=== PATIENT | female | born 1995 | race Caucasian/White ===

== ENCOUNTER → 2017-12-04 11:51 | Outpatient (CLI) | payer OTHER, SELFPAY ==
[2017-12-04 21:13] LABS: Urine N gonorrhoeae NOT DETECTED
[2017-12-04 21:22] LABS: Urine Chlamydia NOT DETECTED
== END ==
PROVIDERS: Family Provider Internal Medicine; PCP Internal Medicine; Visit Provider Internal Medicine
DX: Z11.3 Encounter for screening for infections with a predominantly sexual mode of transmission (principal); Z11.8 Encounter for screening for other infectious and parasitic diseases
CPT/HCPCS: 87491; 87591

== ENCOUNTER → 2020-05-06 10:23 | Outpatient (CLI) | payer OTHER, MEDICAID, SELFPAY ==
[2020-05-06] MEDS: COVID-19 VACC #1, MRNA(MOD) 100 MCG/0.5 ML VIAL IM (10:28)
== END ==
PROVIDERS: Family Provider Internal Medicine; PCP Internal Medicine; Visit Provider Internal Medicine
DX: Z23 Encounter for immunization (principal)
CPT/HCPCS: 0011A; 91301

== ENCOUNTER → 2020-06-03 10:17 | Outpatient (CLI) | payer OTHER, MEDICAID, SELFPAY ==
[2020-06-03] MEDS: COVID-19 VACC #2, MRNA(MOD) 100 MCG/0.5 ML VIAL IM (10:23)
== END ==
PROVIDERS: Family Provider Internal Medicine; PCP Internal Medicine; Visit Provider Internal Medicine
DX: Z23 Encounter for immunization (principal)
CPT/HCPCS: 0012A; 91301

== ENCOUNTER → 2020-11-28 17:40 | Outpatient (ROUT) | payer OTHER, MEDICAID, SELFPAY | PROVIDERS: Family Provider Internal Medicine; PCP Internal Medicine; Visit Provider Internal Medicine | DX: L29.8 Other pruritus (principal); N89.8 Other specified noninflammatory disorders of vagina | CPT/HCPCS: 87070; 87077; 87147; 87205 ==

== ENCOUNTER 2021-03-21 01:25 | Emergency (ER) | payer OTHER, SELFPAY ==
--- NOTE | 2021-03-21 01:35 | ED_ITS ---
HPI - Syncope General Chief Complaint: Syncope Stated Complaint: Syncope Time Seen by Provider: 03/21/21 01:34 History of Present Illness HPI narrative: 26F nonsmoker without significant or chronic medical history presents by EMS for evaluation of a syncopal episode just prior to arrival. She had been in her normal state of health and denies any recent medication change, dietary change. She has had no fever chills and denies any chest pain or shortness of breath. She states that she was having intercourse and adjust had an intense orgasm and developed some pain in her lower abdomen, she started feeling lightheaded and went to the bathroom and then had a syncopal episode. Her partner witness this and stated last about 1 minute and thought she might have been twitching a bit, perhaps likely seizure. She quickly came to and has largely been at her baseline since. She no longer has any abdominal pain. She denies any vaginal bleeding or discharge, last menstrual cycle was 3 weeks ago. She does state that she has had a few episodes of intense pain in the aftermath of an orgasm but never quite as significant as today. Related Data Previous Rx's Medication Instructions Recorded desogestrel 0.15 mg-ethinyl 1 tab PO QDAY #12 packet 12/18/17 estradiol 0.03 mg tablet (Apri) Allergies Allergy/AdvReac Type Severity Reaction Status Date / Time No Known Drug Allergies Allergy Unverified 12/04/17 08:47 Review of Systems Review of Systems Narrative: GENERAL: Denies chills, fatigue, malaise, fever, sweats. HEENT: Denies sinus pain, ear pain, sore throat, difficulty swallowing, dizziness. RESPIRATORY: Denies dyspnea, cough, wheezing, hemoptysis, sputum. CARDIOVASCULAR: See HP GASTROINTESTINAL: Denies nausea, vomiting, abdominal pain, diarrhea, constipation, melena. : Denies dysuria, frequency, incontinence, hematuria, urinary retention. MUSCULOSKELETAL: denies weakness, joint pain, or bony pain SKIN: Denies rash, skin lesions, or other NEUROLOGIC: Denies weakness, headache, numbness, change in speech, confusion, seizures, incoordination. PSYCHIATRIC: No concerning psychosocial issues. 12 point review of systems is negative except for those stated above Patient History Medical History Chicken pox (~1998) Plantar warts Family History Brother Age: 23 Down's syndrome Grandmother Malignant neoplasm of female breast, unspecified laterality, unspecified site of breast Grandmother Malignant neoplasm of female breast, unspecified laterality, unspecified site of breast Social History Smoking Status: Never smoker Smoking Status: Never smoker Exam Narrative Exam Narrative: GENERAL: [26] year old patient appears stated age. Well-developed patient, in mild distress. HEAD: Atraumatic. Normocephalic. EYES: Pupils equal round and reactive. Extraocular motions intact. No scleral icterus. No injection or drainage. ENT: Nose without bleeding, purulent drainage. Throat without erythema, tonsillar hypertrophy or exudate. Airway patent. NECK: Trachea midline. Non tender CARDIOVASCULAR: Regular rate and rhythm without murmurs, gallops, or rubs. RESPIRATORY: Clear to auscultation. Breath sounds equal bilaterally. No wheezes, rales, or rhonchi. GASTROINTESTINAL: Abdomen soft, non-tender, nondistended. EXTREMITIES: No edema or joint tenderness. BACK: Nontender without deformity or crepitance. No flank tenderness. NEURO: AOx3. SKIN: No rash or erythema of visible areas Initial Vital Signs Initial Vital Signs: Vital Signs Temperature 97.8 F 03/21/21 01:40 Pulse Rate 71 03/21/21 01:40 Respiratory Rate 16 03/21/21 01:40 Blood Pressure 127/76 03/21/21 01:40 Pulse Oximetry 100 03/21/21 01:40 Course Orders Ordered: Discontinued Medications Sodium Chloride (Normal Saline 0.9%) 1,000 mls @ 1,000 mls/hr IV BOLUS ONE Stop: 03/21/21 02:34 Last Infusion: 03/21/21 03:05 Dose: 0 mls/hr Documented by: Admin: 03/21/21 02:04 Dose: 1,000 mls/hr Documented by: ANDRES Reevaluation(s) Reevaluation #1: Patient asymptomatic for the duration of her visit MDM - Syncope Lab Data Result diagrams: 03/21/21 01:35 03/21/21 01:59 Labs: Lab Results 03/21/21 03/21/21 Range/Units 01:35 01:59 WBC 7.9 (4.5-11.0) X10^3/uL RBC 4.07 (4.0-5.2) X10^6/uL Hgb 12.9 (12.0-16.0) g/dL Hct 37.2 (36-46) % MCV 91.4 (80-100) fL MCH 31.6 (26-34) PG MCHC 34.6 (30-36) % RDW 12.5 (11.6-14.8) % Plt Count 252 (150-400) X10^3/uL Neut % (Auto) 43.0 L (50-75) % Lymph % (Auto) 48.3 H (25-40) % [place] % (Auto) 6.4 (3-14) % Eos % (Auto) 1.7 L (2-4) % Baso % (Auto) 0.6 (0-2) % Neut # (Auto) 3400 (5895-7941) /uL Lymph # (Auto) 3800 (2879-2023) /uL [place] # (Auto) 500 (0-900) /uL Eos # (Auto) 100 (0-450) /uL Baso # (Auto) 0 (0-100) /uL Sodium 137 (137-145) mmol/L Potassium 3.4 (3.4-5.1) mmol/L Chloride 105 (98-107) mmol/L Carbon Dioxide 24 (22-32) mmol/L BUN 11 (7-17) mg/dL Creatinine 0.68 (0.52-1.04) mg/dL Estimated GFR > 60.0 (>60) mL/min BUN/Creatinine Ratio 16.2 (6-22) Glucose 97 (70-100) mg/dL Calcium 9.5 (8.4-10.2) mg/dL Total Bilirubin 0.4 (0.2-1.3) mg/dL AST 31 (14-36) IU/L ALT 15 (<35) IU/L Alkaline Phosphatase 68 (38-126) U/L Total Creatine Kinase 56 (30-135) U/L CK-MB (CK-2) TNP CK-MB (CK-2) Rel Index TNP Troponin I < 0.012 (0.01-0.034) ng/mL Total Protein 7.5 (6.3-8.2) g/dL Albumin 4.5 (3.5-5.0) g/dL Globulin 3.0 (1.7-4.1) g/dL Albumin/Globulin Ratio 1.5 (1.0-2.8) MDM Narrative Medical decision making narrative: 26-year-old otherwise healthy female presents with a brief unresponsive episode and syncope versus seizure most likely causes. Patient was in her normal state of health and developed severe pelvic pain following an intense orgasm after sexual intercourse, this has happened previously but none quite as intense as this. Patient made her way to the bathroom and started feeling faint and lightheaded. This was followed by about a 1 minute episode of unresponsiveness after which she quickly returned to her baseline and was alert and oriented. This would suggest syncope versus seizure. Furthermore, seizure thought to be unlikely given lack of any postictal period, no loss of control of bladder, she did not bite her tongue. Her etiology of syncope is thought to be vagal, she had intense pain and orgasm leading into this. She did have prodromal symptoms and a rapid return to baseline. EKG shows no ectopy or arrhythmia. Labs are reassuring. Patient given extensive return precautions and questions have been answered to her apparent satisfaction Discharge Plan Departure Patient Disposition: Home Clinical Impression: Vasovagal syncope Instructions: DI for Syncope in Adults (Fainting) Activity Restrictions/Additional Instructions: *You have been diagnosed with [vasovagal syncope. Your history, physical exam, labs and EKG are very reassuring. There is no indication at this time that this was a seizure or other diagnosis that requires any specific or immediate intervention. *What to do: *Please continue to take your regular medications as directed. [ ] New medication prescriptions sent to your pharmacy: [ ] [ ] New medication written as a paper prescription [x ] No new medications given *Please follow up with your primary care provider in 2-3 days, call for an appointment. Let them know you were seen in the Emergency Department and that we ask that you be seen in follow up. We will electronically transmit a record of today's note if your PCP is in our system *If you do not have a primary care provider please contact the [facility] Resource line at [phone]. They will ask some questions about your medical history and help get you set up with a doctor in the community. *Return to Emergency Department if you should have any new, worsening or concerning symptoms, such as [fever greater than 101 F, shaking chills, worsening pain, persistent vomiting or other bothersome symptoms] Prescriptions: No Action desogestrel-ethinyl estradiol [Apri] 0.15-0.03 mg tablet 1 tab PO QDAY Qty: 12 0RF Rx Instructions: Skip placebo pills for month one and month two taking placebo pills month 3 and repeat. Referrals: Summer Ziegler ARNP [Primary Care Provider] -
[2021-03-21 01:40] VITALS: BP 127/76; PULSE 71; RESP 16; TEMP 36.6; O2SAT 100
[2021-03-21 01:46] LABS: Add Manual Diff / Slide Review NO; Basophils Absolute Auto 0 /uL (0-100); Basophils Percent Auto 0.6 % (0-2); Eosinophils Absolute Auto 100 /uL (0-450); Eosinophils Percent Auto 1.7 % (2-4); Hematocrit 37.2 % (36-46); Hemoglobin 12.9 g/dL (12.0-16.0); Lymphocytes Absolute Auto 3800 /uL (1100-4500); Lymphocytes Percent Auto 48.3 % (25-40); Mean Corpuscular HGB Conc 34.6 % (30-36); Mean Corpuscular Hemoglobin 31.6 PG (26-34); Mean Corpuscular Volume 91.4 fL (80-100); Monocytes Absolute Auto 500 /uL (0-900); Monocytes Percent Auto 6.4 % (3-14); Neutrophils Absolute Auto 3400 /uL (1500-7000); Platelet Count 252 X10^3/uL (150-400); Red Blood Cell Count 4.07 X10^6/uL (4.0-5.2); Red Cell Distribution Width 12.5 % (11.6-14.8); White Blood Cell Count 7.9 X10^3/uL (4.5-11.0)
[2021-03-21] MEDS: SODIUM CHLORIDE 0.9% 1,000 ML 1000 ML IV (02:04)
[2021-03-21 02:38] LABS: Alanine Aminotransferase 15 IU/L (<35); Albumin 4.5 g/dL (3.5-5.0); Albumin Globulin Ratio 1.5 (1.0-2.8); Alkaline Phosphatase 68 U/L (38-126); Aspartate Aminotransferase 31 IU/L (14-36); BUN Creatinine Ratio 16.2 (6-22); Bilirubin Total 0.4 mg/dL (0.2-1.3); Blood Urea Nitrogen 11 mg/dL (7-17); Calcium 9.5 mg/dL (8.4-10.2); Carbon Dioxide 24 mmol/L (22-32); Chloride 105 mmol/L (98-107); Creatine Kinase 56 U/L (30-135); Estimated Glomerular Filt Rate > 60.0 mL/min (>60); Glucose 97 mg/dL (70-100); HEMOLYSIS 31 (0-50); Potassium 3.4 mmol/L (3.4-5.1); Sodium 137 mmol/L (137-145); Total Protein 7.5 g/dL (6.3-8.2)
[2021-03-21 02:50] LABS: Troponin I < 0.012 ng/mL (0.01-0.034)
[2021-03-21 02:53] VITALS: PULSE 74; RESP 16; O2SAT 98
[2021-03-21 02:55] VITALS: BP 126/72; BP 126/76; BP 128/74; PULSE 89; PULSE 92; PULSE 94
== END 2021-03-21 03:18 | disposition home or self-care (01) ==
PROVIDERS: Emergency Provider Emergency Medicine; Family Provider Internal Medicine; PCP Internal Medicine
DX: R55 Syncope and collapse (principal)
CPT/HCPCS: 80053; 82550; 84484; 85025; 93005; 96360; 99284